=== PATIENT | female | born 1950 | race Caucasian/White ===

== ENCOUNTER 2017-09-06 07:07 | Day surgery (SDC) | payer OTHER ==
[~2017-09-06 07:07] MED LIST: ACETAMINOPHEN 325 MG TAB PO; PHENYLEPHRINE HCL 10 % OPHTH. SOL 5ML XX
[2017-09-06] MEDS: LIDOCAINE 3.5 % 1ML OPHTH TOPICAL GEL OU (07:50)
[2017-09-06] MEDS: TROPICAMIDE 1% OPHTH SOLN 2ML XX (07:50)
[2017-09-06] MEDS: OFLOXACIN 0.3 % (OCUFLOX) OPTH SOL 5ML XX (07:50)
[2017-09-06] MEDS: CYCLOPENTOLATE 2% OPHTH SOLN 2ML BTL XX (07:50)
[2017-09-06] MEDS: PHENYLEPHRINE 2.5% OPHTH SOL 2ML XX (07:50)
[2017-09-06] MEDS ORDERED: MIDAZOLAM INJ 2 MG/2 ML VIAL (J2250) As Ordered (08:20)
[2017-09-06] MEDS ORDERED: fentaNYL 100 MCG/2 ML INJECTION (J3010) As Ordered (08:21)
[2017-09-06] MEDS: POVIDONE-IODINE 5% OPHTH PREP SOL 30ML As Ordered (08:37)
[2017-09-06] MEDS: LIDOCAINE 1% SDV 5 ML VIAL As Ordered (08:41)
[2017-09-06] MEDS: HEALON DUET (HEALON 10MG/ML 0.55ML & HEALON ENDOCOAT 30MG/ML 0.85ML) As Ordered (08:41)
[2017-09-06] MEDS: MOXIFLOXACIN IN BSS 0.25MG/0.25ML INTRACAMERAL INJ (OR EYE ONLY)(J2280) As Ordered (08:42)
[2017-09-06] MEDS: BSS with VANC/TOB/EPI for EYE CASES IR (08:42)
[2017-09-06] MEDS: TRIAMCINOLONE PRES FR 40 MG/ML 1ML(TRIESENCE)(OR EYE ONLY)(J3300 PER 1MG) As Ordered (08:42)
[2017-09-06] MEDS ORDERED: AcetaZOLAMIDE 500 MG ER CAP As Ordered (09:00)
[2017-09-06] MEDS: AcetaZOLAMIDE 500 MG ER CAP PO (09:08)
[2017-09-06] MEDS ORDERED: TRIMETHOBENZAMIDE 300 MG CAP PO (09:30)
== END 2017-09-06 09:37 | disposition home or self-care (01) ==
LOC: M SDC 07:07
DX: H25.9 Unspecified age-related cataract (principal); E78.5 Hyperlipidemia, unspecified; Z79.899 Other long term (current) drug therapy
CPT/HCPCS: 66984

== ENCOUNTER → 2022-08-16 | Outpatient (CLI) | payer MEDICARE, OTHER ==
[~2022-08-16] MED LIST changes: -ACETAMINOPHEN 325 MG TAB PO; +LIPI20TA PO; -PHENYLEPHRINE HCL 10 % OPHTH. SOL 5ML XX; +SIMV40TA20 PO; +ZOCO5TAB PO
== END ==
LOC: M RAD 12:36
PROVIDERS: ATTEND Otolaryngology
DX: J32.0 Chronic maxillary sinusitis (principal)